=== PATIENT | female | born 1945 | race Two or more races ===

== ENCOUNTER 2019-10-11 21:28 | Emergency (ER) | payer OTHER, MEDICAID ==
[~2019-10-11] VITALS: Ht 162.6 cm; Wt 736.0 kg
[2019-10-12] MEDS ORDERED: BACITRACIN ZINC OINT UDPKT TOP ONE (17:15)
[2019-10-13 09:30] VITALS: BP 120/81
== END 2019-10-13 09:30 | disposition home or self-care (01) ==
LOC: ER 21:28
DX: S00.83XA Contusion of other part of head, initial encounter (principal); W18.39XA Other fall on same level, initial encounter; Y93.89 Activity, other specified; Y92.89 Other specified places as the place of occurrence of the external cause; Y99.8 Other external cause status; Z88.0 Allergy status to penicillin; Z88.2 Allergy status to sulfonamides
CPT/HCPCS: 70486; 71045; 99284

== ENCOUNTER 2019-10-28 12:26 | Emergency (ER) | payer MEDICARE, MEDICAID ==
[~2019-10-28] VITALS: Ht 175.3 cm; Wt 68.0 kg
[2019-10-28 17:22] LABS: EOSINOPHILS % 3.8 % (0.0-5.0); HEMATOCRIT. 35.1 % (36.0-48.0); HEMOGLOBIN. 11.9 g/dL (12.0-16.0); LYMPHOCYTES % 20.6 % (20.0-50.0); MEAN CORPUSCULAR HEMOGLOBIN 31.4 pg (28.0-32.0); MEAN CORPUSCULAR VOLUME 92.5 fL (81.0-99.0); MEAN PLATELET VOLUME 9.2 fl (7.4-10.4); MONOCYTES % 11.8 % (2.0-8.0); NEUTROPHILS % 62.8 % (40.0-76.0); PLATELET 190 x1000/uL (130-400); RED BLOOD CELL COUNT 3.79 mill/uL (4.2-5.4)
[2019-10-28 17:27] LABS: CHLORIDE 109 mEq/L (98-107)
[2019-10-28 18:00] VITALS: BP 139/73
== END 2019-10-28 18:09 | disposition home or self-care (01) ==
LOC: ER 12:26
DX: R55 Syncope and collapse (principal); D64.9 Anemia, unspecified; Z87.828 Personal history of other (healed) physical injury and trauma
CPT/HCPCS: 36415; 71045; 83880; 84484; 93005; 99284